=== PATIENT | female | born 1970 | race Caucasian/White ===

== ENCOUNTER 2022-12-28 09:21 | Outpatient (CLI) | payer BC, SELFPAY | END 2022-12-28 09:22 | disposition home or self-care (01) | PROVIDERS: PCP Emergency Medicine; Visit Provider Physician Assistant | DX: R23.2 Flushing (principal) | CPT/HCPCS: 83001; 84443 ==

== ENCOUNTER 2023-04-06 13:26 | Outpatient (CLI) | payer BC, SELFPAY ==
--- NOTE | 2023-04-06 13:40 | CRLHL7_ITS ---
For Patients: As a result of the Century Cures Act, medical imaging exams and procedure reports are released immediately into your electronic medical record. You may view this report before your referring provider. If you have questions, please contact your health care provider. BILATERAL SCREENING MAMMOGRAM WITH COMPUTER-AIDED DETECTION AND TOMOSYNTHESIS TECHNIQUE: CC and MLO views were obtained. These mammographic images have been obtained using full-field digital technique. These mammographic images were interpreted with the benefit of computer-aided detection. Breast Tomosynthesis was used in this interpretation. COMPARISON FILM: 09/11/21, 07/30/17. FINDINGS: There are scattered areas of fibroglandular density IMPRESSION: There is no radiographic evidence for malignancy. ASSESSMENT: BI-RADS Category 1: Negative RECOMMENDATION: Routine screening mammogram in 1 year. A lay language report of this examination will be provided to the patient. Loi Garza M.D. Diagnostic Radiologist [email or web address] MARGOT/Dictated by: Loi Garza MD @ 04/07/2023 11:46:00 AM (Electronically Signed)
== END 2023-04-06 13:27 | disposition home or self-care (01) ==
LOC: MAMMO 13:29
PROVIDERS: PCP Emergency Medicine; Visit Provider Physician Assistant
DX: Z12.31 Encounter for screening mammogram for malignant neoplasm of breast (principal)
CPT/HCPCS: 77063; 77067

== ENCOUNTER 2024-09-07 10:18 | Outpatient (CLI) | payer BC, SELFPAY ==
[2024-09-11 09:45] LABS: HSV 1 Subtype by PCR Detected; HSV 2 Subtype by PCR Not Detected; Herpes Simplex Subtype Source Vesicle
== END 2024-09-07 10:19 | disposition home or self-care (01) ==
LOC: LKVREF 10:19
PROVIDERS: PCP Emergency Medicine; Visit Provider Emergency Medicine
DX: J34.89 Other specified disorders of nose and nasal sinuses (principal)
CPT/HCPCS: 87529

== ENCOUNTER 2024-11-07 11:18 | Outpatient (CLI) | payer BC, SELFPAY ==
--- NOTE | 2024-11-07 11:30 | CRLHL7_ITS ---
For Patients: As a result of the Century Cures Act, medical imaging exams and procedure reports are released immediately into your electronic medical record. You may view this report before your referring provider. If you have questions, please contact your health care provider. INDICATION: BILATERAL SCREENING MAMMOGRAM, ASYMPTOMATIC 54 F COMPARISON: 04/06/23, 09/11/21, 07/30/17 OUTSIDE TECHNIQUE: CC and MLO views were obtained. These mammographic images have been obtained using full-field digital technique. These mammographic images were interpreted with the benefit of computer aided detection and tomosynthesis. BREAST COMPOSITION: The breasts are almost entirely fatty. FINDINGS: No suspicious findings. ASSESSMENT: BI-RADS 1 Negative RECOMMENDATION: Annual screening mammogram. A lay language report of this examination will be provided to the patient. Dictated by: Loi Garza MD @ 11/09/2024 13:06:30 (Electronically Signed)
== END 2024-11-07 11:19 | disposition home or self-care (01) ==
LOC: MAMMO 11:19
PROVIDERS: PCP Emergency Medicine; Visit Provider Emergency Medicine
DX: Z12.31 Encounter for screening mammogram for malignant neoplasm of breast (principal)
CPT/HCPCS: 77063; 77067